=== PATIENT | female | born 1980 | race Caucasian/White ===

== ENCOUNTER 2021-08-01 10:36 | Day surgery (SDC) | payer BC, OTHER ==
[2021-07-31 11:24] VITALS: BMI 17.0
[2021-08-01] MEDS ORDERED: AFRIN NASAL MIST 15 ML BOT ONE ×2 (11:25→11:54)
[2021-08-01] MEDS ORDERED: EPINEPHrine 1 MG/ML AMP ONE (11:54)
[2021-08-01] MEDS ORDERED: Bacitracin Zinc Ointment 30 gm TUBE ONE (11:54)
[2021-08-01] MEDS ORDERED: Lidocaine 1% w/Epinephrine 1:100K 20 ML VIAL ONE (11:54)
[2021-08-01] MEDS ORDERED: fentaNYL Citrate/PF 100 MCG/2 ML SYRINGE ONE (12:05)
[2021-08-01] MEDS ORDERED: Dexamethasone 20 MG/5 ML VIAL ONE (12:22)
[2021-08-01] MEDS ORDERED: Lidocaine 1% PF 5 ML VIAL ONE (12:22)
[2021-08-01] MEDS ORDERED: PROPOFOL 200 MG/20 ML VIAL ONE (12:22)
[2021-08-01] MEDS ORDERED: Rocuronium Bromide 10 MG/ML (10ML VIAL) ONE (12:22)
[2021-08-01] MEDS ORDERED: Ondansetron PF 4 MG/2 ML Vial ONE (12:22)
[2021-08-01] MEDS ORDERED: Glycopyrrolate 0.2 MG/ML 5 ML SYRINGE ONE (12:22)
[2021-08-01] MEDS ORDERED: Fentanyl 100 MCG/2 ML VIAL ONE (13:34)
[2021-08-01] MEDS ORDERED: HYDROcodone/Acetaminophen 5/325 mg Tablet ONE (13:58)
== END 2021-08-01 14:40 | disposition home or self-care (01) ==
LOC: SDC 10:36
PROVIDERS: ATTEND Specialist
PROC: 0NSB0ZZ Reposition Nasal Bone, Open Approach (ICD-10-PCS; principal; 2021-08-01)
PROC: 09SM0ZZ Reposition Nasal Septum, Open Approach (ICD-10-PCS; principal; 2021-08-01)
PROC: 09SL8ZZ Reposition Nasal Turbinate, Via Natural or Artificial Opening Endoscopic (ICD-10-PCS; principal; 2021-08-01)
DX: J34.2 Deviated nasal septum (principal); J34.3 Hypertrophy of nasal turbinates; J34.89 Other specified disorders of nose and nasal sinuses; J45.909 Unspecified asthma, uncomplicated; Z87.81 Personal history of (healed) traumatic fracture; Z79.899 Other long term (current) drug therapy
CPT/HCPCS: 85014; J0171; J1100; J2405; J2704; J3010